=== PATIENT | male | born 1945 | race Two or more races ===

== ENCOUNTER → 2016-03-13 | Outpatient (CLI) | payer OTHER ==
--- NOTE | 2016-03-13 14:45 | RAD ---
Right upper quadrant abdominal ultrasound, 03/13/2016: History: Pain The gallbladder is within normal limits in size. There is no sonographic evidence of cholelithiasis. No bile duct dilatation is seen. The liver demonstrates increased echogenicity most commonly due to fatty change. No hepatic mass is evident. The pancreas was largely obscured by overlying bowel. There is a 4.4 cm cyst arising from the upper pole of the right kidney. There is no evidence of hydronephrosis. IMPRESSION: 1. No gallbladder abnormality is detected. 2. Increased hepatic echogenicity compatible with fatty infiltration. 3. Right renal cyst.
== END | disposition home or self-care (01) ==
LOC: US 13:12
PROVIDERS: ATTEND Internal Medicine
DX: R10.11 Right upper quadrant pain (principal); N28.1 Cyst of kidney, acquired; K76.0 Fatty (change of) liver, not elsewhere classified
CPT/HCPCS: 76705

== ENCOUNTER 2016-09-03 23:39 | Emergency (ER) | payer OTHER ==
[~2016-09-03] VITALS: Ht 154.9 cm; Wt 69.9 kg
[2016-09-03] MEDS ORDERED: IV NORMAL SALINE 1000ML BAG 1,000 ML IV SCH (23:55)
[2016-09-04 00:09] LABS: BASO % 1 % (0-3); EOS % 2 % (0-3); HEMATOCRIT 41.4 % (39.0-53.0); HEMOGLOBIN 14.5 g/dL (13.0-17.5); LYMPH # 1.5 x10^3/uL (1.0-4.8); LYMPH % 17 % (24-48); MEAN CORPUSCULAR HEMOGLOBIN 34 pg (25-35); MEAN CORPUSCULAR HGB CONC 35 g/dL (31-37); MEAN CORPUSCULAR VOLUME 96 fL (79-100); MONO % 6 % (0-9); NEUT % 75 % (31-73); PLATELET COUNT 174 x10^3/uL (140-400); RED BLOOD COUNT 4.32 x10^6/uL (4.30-5.70); RED CELL DISTRIBUTION WIDTH 12.6 % (11.5-14.5); WHITE BLOOD COUNT 8.7 x10^3/uL (4.0-11.0)
[2016-09-04 00:21] LABS: INR 1.1 (0.8-1.1); PROTHROMBIN TIME PATIENT 13.2 SEC (11.7-14.0)
[2016-09-04 00:22] LABS: CALCIUM 9.4 mg/dL (8.5-10.1); CREATININE 0.9 mg/dL (0.7-1.3); GFR 82.9; POTASSIUM 4.5 mmol/L (3.5-5.1)
[2016-09-04 00:28] LABS: ALBUMIN 3.8 g/dL (3.4-5.0); ALBUMIN/GLOBULIN RATIO 1.2 (1.0-1.7); MAGNESIUM 1.9 mg/dL (1.8-2.4); TOTAL BILIRUBIN 0.4 mg/dL (0.2-1.0); TOTAL PROTEIN 7.1 g/dL (6.4-8.2)
[2016-09-04 01:02] LABS: BILIRUBIN,URINE NEGATIVE (NEG); GLUCOSE,URINE >=1000 mg/dL (NEG); NITRITE,URINE NEGATIVE (NEG); PROTEIN,URINE NEGATIVE (NEG-TRACE); UROBILINOGEN,URINE 0.2 mg/dL (0.2 mg/dL)
[2016-09-04 01:07] LABS: BARBITURATES NEG (NEG); BENZODIAZEPINES NEG (NEG); CANNABINOIDS NEG (NEG); COCAINE NEG (NEG); METHADONE NEG (NEG); OPIATES NEG (NEG); PHENCYCLIDINE NEG (NEG)
[2016-09-04 01:31] LABS: BACTERIA,URINE 0 /HPF (0-FEW); RBC,URINE OCC /HPF (0-2); SQUAMOUS EPITHELIAL CELL,UR OCC /LPF; WBC,URINE OCC /HPF (0-4)
--- NOTE | 2016-09-04 02:01 | PHYS DOC ---
Past Medical History Past Medical History: Asthma, Diabetes-Type II, High Cholesterol, Hypothyroid Past Surgical History: Other Additional Past Surgical Histo: THYROID Alcohol Use: None Drug Use: None Adult General Chief Complaint Chief Complaint: ACCIDENTAL INGESTION HPI HPI Patient is a 71 year old male who presents with accidently ingested weed killer. Pt speaks Togolese and wishes for his family present in ER to interpret for him. Pt had commercial weed killer put in Power-aid bottle but forgot it was in there and color looked like regular poweraid to accidently took 2 swigs of the weed killer, family is guessing apporx 1/4 cup was swallowed.. This occured approx 45 min [employer]. Pt states felt like burning in back of throat/mouth and now feels ache in chest, head , neck and body aches, with nausea. Pt has not vomited. Pt states feels dizzy. Review of Systems Review of Systems Constitutional: Denies fever or chills [] Eyes: Denies change in visual acuity, redness, or eye pain [] HENT: Denies nasal congestion Respiratory: Denies cough or shortness of breath [] Cardiovascular: No additional information not addressed in HPI [] GI: Denies abdominal pain, vomiting, bloody stools or diarrhea [] : Denies dysuria or hematuria [] Integument: Denies rash or skin lesions [] Neurologic: Denies focal weakness or sensory changes [] Current Medications Current Medications Current Medications Medications (Trade) Dose Ordered Sig/Jose Start Time Stop Time Status Last Admin Dose Admin Sodium Chloride 1,000 ml @ 100 mls/hr 1X ONCE 09/04/16 02:15 09/04/16 06:07 DC 09/04/16 02:20 100 MLS/HR Allergies Allergies Allergies Coded Allergies Type Severity Reaction Last Updated Verified No Known Drug Allergies 09/04/16 No Physical Exam Physical Exam Constitutional: Well developed, well nourished, no acute distress, non-toxic appearance. [] HENT: Normocephalic, atraumatic, bilateral external ears normal, oropharynx moist, nose normal. Pt has areas of excoriation on palate mucosa and posterior pharynx. No hypersalivation, no trismus Eyes: PERRLA, EOMI, conjunctiva normal, no discharge. [] Neck: Normal range of motion, no tenderness, supple, no stridor. [] Cardiovascular:Heart rate regular rhythm, no murmur [] Lungs & Thorax: Bilateral breath sounds clear to auscultation [] Abdomen: Bowel sounds normal, soft, no tenderness, no masses, no pulsatile masses. [] Skin: Warm, dry, no erythema, no rash. [] Back: No tenderness, no CVA tenderness. [] Extremities: No tenderness, no cyanosis, no clubbing, ROM intact, no edema. [] Neurologic: Alert and oriented X 3, normal motor function, normal sensory function, no focal deficits noted. [] Psychologic: Affect normal, judgement normal, mood normal. [] Current Patient Data Vital Signs Vital Signs Date Time Temp Pulse Resp B/P (MAP) Pulse Ox O2 Delivery O2 Flow Rate FiO2 09/04/16 05:55 66 16 145/72 (96) 96 Room Air 09/03/16 23:45 98.1 98.1 Lab Values Laboratory Tests Test 09/03/16 23:50 09/04/16 00:52 09/04/16 03:46 White Blood Count 8.7 x10^3/uL (4.0-11.0) Red Blood Count 4.32 x10^6/uL (4.30-5.70) Hemoglobin 14.5 g/dL (13.0-17.5) Hematocrit 41.4 % (39.0-53.0) Mean Corpuscular Volume 96 fL (79-100) Mean Corpuscular Hemoglobin 34 pg (25-35) Mean Corpuscular Hemoglobin Concent 35 g/dL (31-37) Red Cell Distribution Width 12.6 % (11.5-14.5) Platelet Count 174 x10^3/uL (140-400) Neutrophils (%) (Auto) 75 % (31-73) H Lymphocytes (%) (Auto) 17 % (24-48) L Monocytes (%) (Auto) 6 % (0-9) Eosinophils (%) (Auto) 2 % (0-3) Basophils (%) (Auto) 1 % (0-3) Neutrophils # (Auto) 6.5 x10^3uL (1.8-7.7) Lymphocytes # (Auto) 1.5 x10^3/uL (1.0-4.8) Monocytes # (Auto) 0.5 x10^3/uL (0.0-1.1) Eosinophils # (Auto) 0.1 x10^3/uL (0.0-0.7) Basophils # (Auto) 0.0 x10^3/uL (0.0-0.2) Prothrombin Time 13.2 SEC (11.7-14.0) Prothrombin Time INR 1.1 (0.8-1.1) PTT 32 SEC (24-38) Sodium Level 138 mmol/L (136-145) Potassium Level 4.5 mmol/L (3.5-5.1) Chloride Level 101 mmol/L (98-107) Carbon Dioxide Level 26 mmol/L (21-32) Anion Gap 11 (6-14) Blood Urea Nitrogen 11 mg/dL (8-26) Creatinine 0.9 mg/dL (0.7-1.3) Estimated GFR (Cockcroft-Gault) 82.9 BUN/Creatinine Ratio 12 (6-20) Glucose Level 295 mg/dL (70-99) H Lactic Acid Level 2.0 mmol/L (0.4-2.0) Calcium Level 9.4 mg/dL (8.5-10.1) Magnesium Level 1.9 mg/dL (1.8-2.4) Total Bilirubin 0.4 mg/dL (0.2-1.0) Aspartate Amino Transferase (AST) 33 U/L (15-37) Alanine Aminotransferase (ALT) 41 U/L (16-63) Alkaline Phosphatase 118 U/L (46-116) H Troponin I Quantitative < 0.017 ng/mL (0.000-0.055) Total Protein 7.1 g/dL (6.4-8.2) Albumin 3.8 g/dL (3.4-5.0) Albumin/Globulin Ratio 1.2 (1.0-1.7) Lipase 191 U/L (73-393) Ethyl Alcohol Level < 10 mg/dL (0-10) Urine Collection Type Unknown Urine Color Yellow Urine Clarity Clear Urine pH 6.0 Urine Specific [place] 1.020 Urine Protein Negative mg/dL (NEG-TRACE) Urine Glucose (UA) >=1000 mg/dL (NEG) Urine Ketones (Stick) Negative mg/dL (NEG) Urine Blood Negative (NEG) Urine Nitrite Negative (NEG) Urine Bilirubin Negative (NEG) Urine Urobilinogen Dipstick 0.2 mg/dL (0.2 mg/dL) Urine Leukocyte Esterase Negative (NEG) Urine RBC Occ /HPF (0-2) Urine WBC Occ /HPF (0-4) Urine Squamous Epithelial Cells Occ /LPF Urine Bacteria 0 /HPF (0-FEW) Urine Mucus Slight /LPF Urine Opiates Screen Neg (NEG) Urine Methadone Screen Neg (NEG) Urine Barbiturates Neg (NEG) Urine Phencyclidine Screen Neg (NEG) Urine Amphetamine/Methamphetamine Neg (NEG) Urine Benzodiazepines Screen Neg (NEG) Urine Cocaine Screen Neg (NEG) Urine Cannabinoids Screen Neg (NEG) Urine Ethyl Alcohol Neg (NEG) POC Troponin I 0.00 ng/ml (<0.08) Laboratory Tests 09/03/16 23:50 Laboratory Tests 09/03/16 23:50 Lab normal except for elevated glucose initial troponin normal and repeat during observation for 6 hours in ER -- repeat trop was normal EKG EKG EKG---sinus rhythm no STEMI[] Interpretation Time: 3 Radiology/Procedures Radiology/Procedures PATIENT: ERIC PIPER ACCOUNT: [id number] : 1945 LOCATION: ER AGE: 71 SEX: M EXAM STATUS: DEP ER ORD. PHYSICIAN: LUIS ANTONIO OCONNOR MD REASON: chest pain PROCEDURE: PORTABLE CHEST 1V Indication chest pain. A single view of the chest was obtained and is compared to an examination March 13, 2016. The heart and pulmonary vessels appear normal. The lungs are clear. There is no pleural fluid or pneumothorax. A significant change compared to the previous exam is not seen. IMPRESSION: No acute finding. No significant change DICTATED and SIGNED BY: URIEL VARMA MD DATE: 09/04/16 0749 CC: LUIS ANTONIO OCONNOR MD; AIDA LOZANO MD ~ [] Course & Med Decision Making Course & Med Decision Making Pertinent Labs and Imaging studies reviewed. (See chart for details) Discussed case with poison control. 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 Pt observed in ER for 6 hours and no signs of organophosphate toxicity. Per poison control recommended supportive care and observe in ER for 6 hours. Pt during observation improved symptoms no dizzy, no LIRIANO no chest or abdominal pain VSS Per poison control liquid can have detergent like irritation to mucous membranes and that goes along with physician exam Pt able to swallow water in ER without difficulty and no vomiting Will discharge home after 6 hours. Advised liquid diet and advance to soft in next 1-2 days. Avoid spicy or crunchy foods Follow up with PCP for recheck in 1-2 days Dragon Disclaimer Dragon Disclaimer This electronic medical record was generated, in whole or in part, using a voice recognition dictation system. Departure Departure Impression: Primary Impression: [place] from ingested chemical agent Additional Impression: Accidental ingestion of potentially harmful entity Disposition: 01 HOME, SELF-CARE Condition: IMPROVED Referrals: AIDA LOZANO MD (PCP) Problem Qualifiers LUIS ANTONIO OCONNOR MD Sep 04, 2016 02:01
[2016-09-04] MEDS ORDERED: IV NORMAL SALINE 1000ML BAG 1,000 ML IV ONE (02:15)
[2016-09-04 05:55] VITALS: BP 145/72
--- NOTE | 2016-09-04 07:01 | EKG ---
[facility] [address] [place] [address] Test Date: 2016-09-03 Test Time: 23:53:27 Pat Name: ERIC PIPER Department: Room: Gender: M Chief Architect: : 1945 Requested By: LUIS ANTONIO OCONNOR Order Number: [id number] Reading MD: Measurements Intervals [place] Rate: 70 P: [place]: QRS: -4 QRSD: 128 T: 52 QT: 400 QTc: 435 Interpretive Statements IRREGULAR RHYTHM, NO P-WAVE FOUND LEFTWARD AXIS NON SPECIFIC INTRAVENTRICULAR BLOCK RI6.01 Unconfirmed report No previous ECG available for comparison
--- NOTE | 2016-09-04 07:59 | RAD ---
Indication chest pain. A single view of the chest was obtained and is compared to an examination March 13, 2016. The heart and pulmonary vessels appear normal. The lungs are clear. There is no pleural fluid or pneumothorax. A significant change compared to the previous exam is not seen. IMPRESSION: No acute finding. No significant change
== END 2016-09-04 06:00 | disposition home or self-care (01) ==
LOC: ER 23:39
DX: T60.3X1A Toxic effect of herbicides and fungicides, accidental (unintentional), initial encounter (principal); T28.0XXA Burn of mouth and pharynx, initial encounter; J45.909 Unspecified asthma, uncomplicated; E11.9 Type 2 diabetes mellitus without complications; E78.00 Pure hypercholesterolemia, unspecified; E03.9 Hypothyroidism, unspecified; X08.8XXA Exposure to other specified smoke, fire and flames, initial encounter; Y93.89 Activity, other specified; Y92.89 Other specified places as the place of occurrence of the external cause; Y99.8 Other external cause status
CPT/HCPCS: 36415; 71010; 80053; 80305; 81001; 83605; 83690; 83735; 84484; 85027; 85610; 85730; 93005; 96360; 96361; 99285; G0480; J7030; G0481

== ENCOUNTER 2018-10-14 21:01 | Emergency (ER) | payer MEDICARE, OTHER ==
[~2018-10-14] VITALS: Ht 154.9 cm; Wt 64.9 kg
[2018-10-14 22:41] LABS: BASO % 0 % (0-3); EOS # 0.1 x10^3/uL (0.0-0.7); EOS % 1 % (0-3); HEMATOCRIT 42.1 % (39.0-53.0); HEMOGLOBIN 14.6 g/dL (13.0-17.5); LYMPH # 1.6 x10^3/uL (1.0-4.8); LYMPH % 15 % (24-48); MEAN CORPUSCULAR HEMOGLOBIN 33 pg (25-35); MEAN CORPUSCULAR HGB CONC 35 g/dL (31-37); MEAN CORPUSCULAR VOLUME 96 fL (79-100); MONO # 0.6 x10^3/uL (0.0-1.1); MONO % 5 % (0-9); NEUT # 8.8 x10^3/uL (1.8-7.7); NEUT % 79 % (31-73); PLATELET COUNT 208 x10^3/uL (140-400); RED BLOOD COUNT 4.37 x10^6/uL (4.30-5.70); RED CELL DISTRIBUTION WIDTH 13.6 % (11.5-14.5); WHITE BLOOD COUNT 11.1 x10^3/uL (4.0-11.0)
[2018-10-14 22:43] LABS: BILIRUBIN,URINE NEGATIVE (NEG); CLARITY,URINE CLEAR; COLOR,URINE YELLOW; NITRITE,URINE NEGATIVE (NEG); PROTEIN,URINE NEGATIVE (NEG-TRACE); UROBILINOGEN,URINE 0.2 mg/dL (0.2 mg/dL)
[2018-10-14 22:50] LABS: CALCIUM 9.3 mg/dL (8.5-10.1); CREATININE 1.1 mg/dL (0.7-1.3); GFR 65.4; POTASSIUM 4.5 mmol/L (3.5-5.1)
[2018-10-14 22:50] LABS: BACTERIA,URINE 0 /HPF (0-FEW); RBC,URINE 0 /HPF (0-2); SQUAMOUS EPITHELIAL CELL,UR OCC /LPF; WBC,URINE 0 /HPF (0-4)
[2018-10-14 22:55] LABS: ALBUMIN 3.9 g/dL (3.4-5.0); ALBUMIN/GLOBULIN RATIO 0.9 (1.0-1.7); TOTAL BILIRUBIN 0.3 mg/dL (0.2-1.0); TOTAL PROTEIN 8.1 g/dL (6.4-8.2)
--- NOTE | 2018-10-14 23:19 | RAD ---
CHEST PA LATERAL INDICATION: Cough, weakness. COMPARISON STUDY: 05/01/2017. FINDINGS: Lungs: Normal lung volume. No pulmonary mass or consolidation. The tracheobronchial tree and hilar structures are normal. Pleura: No pleural effusion or pneumothorax. Heart and Mediastinum: The cardiomediastinal silhouette is normal. The great vessels of the thorax are normal. Bones and Soft Tissues: The bones and soft tissues are within normal limits. IMPRESSION: No acute cardiopulmonary process. Electronically signed by: Ty Yeung MD (10/14/2018 11:16 PM) [facility]
--- NOTE | 2018-10-15 00:16 | PHYS DOC ---
Past Medical History Past Medical History: Asthma, Diabetes-Type II, High Cholesterol, Hypertension Past Surgical History: Cervical Fusion Additional Past Surgical Histo: THYROIDECTOMY Alcohol Use: None Drug Use: None Adult General Chief Complaint Chief Complaint: WEAKNESS/GENERALIZED HPI HPI Patient is a 73 year old male, accompanied by his daughter, who presents to the ER with complaints of a dry cough, generalized weakness, sore throat, restless legs, and shortness of breath that has gradually increased over the last 2 weeks. Mother states that the patient reports feeling like he has pneumonia. Patient has had pneumonia several times in the past. He complains of generalized body aches and a headache and he rates his pain a 9 out of 10 on the pain scale, there are no alleviating or exacerbating factors. The patient's daughter translated for the patient as he is Cambodian speaking only. Review of Systems Review of Systems Constitutional: Denies fever or chills [] Eyes: Denies redness, or eye pain [] HENT: Denies nasal congestion or ear pain; reports sore throat Respiratory: Reports dry cough, shortness of breath, and intermittent wheezing Cardiovascular: No additional information not addressed in HPI, denies chest pain or palpitations [] GI: Denies nausea, vomiting, or bloody stools; complains of left lower abdominal pain and diarrhea for the last 2 days [] : Denies dysuria or hematuria [] Musculoskeletal: Reports body aches Integument: Denies rash or skin lesions [] Neurologic: Denies focal weakness or sensory changes; reports headache[] Endocrine: Denies polyuria or polydipsia [] Complete systems were reviewed and found to be within normal limits, except as documented in this note. Current Medications Current Medications Current Medications Medications (Trade) Dose Ordered Sig/Jose Start Time Stop Time Status Last Admin Dose Admin Fentanyl Citrate (Fentanyl 2ml Vial) 50 mcg 1X ONCE 10/15/18 00:30 10/15/18 00:31 DC 10/15/18 00:32 50 MCG Info (CONTRAST GIVEN -- Rx MONITORING) 1 each PRN DAILY PRN 10/15/18 00:30 10/17/18 00:29 Iohexol (Omnipaque 300 Mg/ml) 75 ml 1X ONCE 10/15/18 01:00 10/15/18 01:01 DC 10/15/18 00:41 75 ML Ondansetron HCl (Zofran) 4 mg 1X ONCE 10/15/18 00:30 10/15/18 00:31 DC 10/15/18 00:32 4 MG Sodium Chloride 1,000 ml @ 1,000 mls/hr 1X ONCE 10/15/18 00:30 10/15/18 01:29 DC 10/15/18 00:32 1,000 MLS/HR Allergies Allergies Allergies Coded Allergies Type Severity Reaction Last Updated Verified No Known Drug Allergies 09/04/16 No Physical Exam Physical Exam Constitutional: Well developed, well nourished, no acute distress, non-toxic appearance. [] HENT: Normocephalic, atraumatic, bilateral external ears normal, posterior pharynx normal, oropharynx moist, no oral exudates, nose normal. [] Eyes: PERRLA, EOMI, conjunctiva normal, no discharge. [] Neck: Normal range of motion, no tenderness, supple, no stridor. [] Cardiovascular:Heart rate regular rhythm, no murmur [] Lungs & Thorax: Bilateral breath sounds with rhonchi throughout all moralez that is cleared by coughing, no retractions, no increased work of breathing, fever expiratory wheezes Abdomen: Bowel sounds normal, soft, LLQ tenderness to palpation, no rebound tenderness, no guarding, no masses, no pulsatile masses. [] Skin: Warm, dry, no erythema, no rash. [] Back: No tenderness, no CVA tenderness. [] Extremities: No cyanosis, no clubbing, ROM intact, no edema. [] Neurologic: Alert and oriented X 3, no focal deficits noted. [] Psychologic: Affect normal, judgement normal, mood normal. [] Current Patient Data Vital Signs Vital Signs Date Time Temp Pulse Resp B/P (MAP) Pulse Ox O2 Delivery O2 Flow Rate FiO2 10/14/18 21:41 97.5 79 18 130/88 (102) 96 Room Air 97.5 Lab Values Laboratory Tests Test 10/14/18 22:15 10/14/18 22:20 Urine Collection Type Void Urine Color Yellow Urine Clarity Clear Urine pH 6.0 Urine Specific [place] 1.025 Urine Protein Negative mg/dL (NEG-TRACE) Urine Glucose (UA) Negative mg/dL (NEG) Urine Ketones (Stick) Negative mg/dL (NEG) Urine Blood Negative (NEG) Urine Nitrite Negative (NEG) Urine Bilirubin Negative (NEG) Urine Urobilinogen Dipstick 0.2 mg/dL (0.2 mg/dL) Urine Leukocyte Esterase Negative (NEG) Urine RBC 0 /HPF (0-2) Urine WBC 0 /HPF (0-4) Urine Squamous Epithelial Cells Occ /LPF Urine Bacteria 0 /HPF (0-FEW) Urine Mucus Marked /LPF White Blood Count 11.1 x10^3/uL (4.0-11.0) H Red Blood Count 4.37 x10^6/uL (4.30-5.70) Hemoglobin 14.6 g/dL (13.0-17.5) Hematocrit 42.1 % (39.0-53.0) Mean Corpuscular Volume 96 fL (79-100) Mean Corpuscular Hemoglobin 33 pg (25-35) Mean Corpuscular Hemoglobin Concent 35 g/dL (31-37) Red Cell Distribution Width 13.6 % (11.5-14.5) Platelet Count 208 x10^3/uL (140-400) Neutrophils (%) (Auto) 79 % (31-73) H Lymphocytes (%) (Auto) 15 % (24-48) L Monocytes (%) (Auto) 5 % (0-9) Eosinophils (%) (Auto) 1 % (0-3) Basophils (%) (Auto) 0 % (0-3) Neutrophils # (Auto) 8.8 x10^3/uL (1.8-7.7) H Lymphocytes # (Auto) 1.6 x10^3/uL (1.0-4.8) Monocytes # (Auto) 0.6 x10^3/uL (0.0-1.1) Eosinophils # (Auto) 0.1 x10^3/uL (0.0-0.7) Basophils # (Auto) 0.0 x10^3/uL (0.0-0.2) Prothrombin Time 13.2 SEC (11.7-14.0) Prothrombin Time INR 1.0 (0.8-1.1) Activated Partial Thromboplast Time 29 SEC (24-38) Sodium Level 141 mmol/L (136-145) Potassium Level 4.5 mmol/L (3.5-5.1) Chloride Level 106 mmol/L (98-107) Carbon Dioxide Level 25 mmol/L (21-32) Anion Gap 10 (6-14) Blood Urea Nitrogen 22 mg/dL (8-26) Creatinine 1.1 mg/dL (0.7-1.3) Estimated GFR (Cockcroft-Gault) 65.4 BUN/Creatinine Ratio 20 (6-20) Glucose Level 156 mg/dL (70-99) H Lactic Acid Level 1.4 mmol/L (0.4-2.0) Calcium Level 9.3 mg/dL (8.5-10.1) Magnesium Level 2.0 mg/dL (1.8-2.4) Total Bilirubin 0.3 mg/dL (0.2-1.0) Aspartate Amino Transferase (AST) 14 U/L (15-37) L Alanine Aminotransferase (ALT) 33 U/L (16-63) Alkaline Phosphatase 101 U/L (46-116) Creatine Kinase 193 U/L (39-308) Creatine Kinase MB (Mass) 1.8 ng/mL (0.0-3.6) Creatine Kinase MB Relative Index 0.9 % (0-4) Troponin I Quantitative < 0.017 ng/mL (0.000-0.055) DT-Hfz-H-Type Natriuretic Peptide 22 pg/mL (0-124) Total Protein 8.1 g/dL (6.4-8.2) Albumin 3.9 g/dL (3.4-5.0) Albumin/Globulin Ratio 0.9 (1.0-1.7) L Laboratory Tests 10/14/18 22:20 Laboratory Tests 10/14/18 22:20 EKG EKG 2238- SR leftward axis, rate 75, T wave abnormality in high lateral leads, no STEMI read by Dr. Birch. [] Radiology/Procedures Radiology/Procedures PROCEDURE: CHEST PA & LATERAL CHEST PA LATERAL INDICATION: Cough, weakness. COMPARISON STUDY: 05/01/2017. FINDINGS: Lungs: Normal lung volume. No pulmonary mass or consolidation. The tracheobronchial tree and hilar structures are normal. Pleura: No pleural effusion or pneumothorax. Heart and Mediastinum: The cardiomediastinal silhouette is normal. The great vessels of the thorax are normal. Bones and Soft Tissues: The bones and soft tissues are within normal limits. IMPRESSION: No acute cardiopulmonary process.[] PROCEDURE: CT ABD PELV W/ IV CONTRST ONLY CT abdomen and pelvis with contrast: Reason for examination: Left lower abdominal pain and diarrhea. Helical images were obtained through the abdomen and pelvis with intravenous administration of 75 cc Omnipaque 300. Reconstruction was performed in sagittal and coronal planes. Exposure: One or more of the following individualized dose reduction techniques were utilized for this examination: 1. Automated exposure control 2. Adjustment of the mA and/or kV according to patient size 3. Use of iterative reconstruction technique. There is some atelectasis at the right lung base. The heart size is normal with no pericardial effusion evident. No abnormality seen at the liver, spleen, pancreas or adrenal glands. The gallbladder is contracted but no choleliths are identified. The abdominal aorta and inferior vena cava show no acute abnormalities. No abnormality seen at the appendix. There is no evidence of diverticulosis or diverticulitis. The small intestinal tract shows no abnormal dilatation or wall thickening and no obstruction is seen. No abnormality seen at the stomach but there is a large amount of gastric content present but no evidence of gastric outlet obstruction. The kidneys show hypodense lesions consistent with cysts bilaterally with the largest lesion at the upper pole the right kidney measuring 3 cm in size. No renal calculi, hydronephrosis or obstructive uropathy is seen. No abnormality seen at the bladder, prostate gland or seminal vesicles. There is no free fluid or free air seen in the abdomen or pelvis. No acute bony abnormalities are evident. IMPRESSION: Linear atelectasis at the right lung base. Contracted gallbladder with no evidence of cholelithiasis. Multiple hypodense renal lesions consistent with cysts with the largest measuring 3 cm in size at the upper pole of the right kidney. No acute intestinal abnormality evident. Course & Med Decision Making Course & Med Decision Making Pertinent Labs and Imaging studies reviewed. (See chart for details) dx: bronchitis ddx: Pneumonia, pulmonary embolism, ACS, CHF, colitis, diverticulitis, infectious diarrhea CBC had a mildly elevated white blood count of 11.1 and a mild shift, UTI and are is unremarkable, CMP revealed a glucose of 156 is otherwise unremarkable, CK-MB index is negative, troponin is negative, BNP is 22, UA is negative for any concerns of infection. cxr normal, no acute findings. CT abdomen and pelvis with IV contrast reveals linear atelectasis at the right lung base otherwise no acute findings Patient was given a liter of normal saline in the emergency department, 4 mg of Zofran, and 50 �g of fentanyl. He reported feeling better after these tests and interventions. We'll prescribe Levaquin 750 mg one by mouth daily for 7 days, a Pro Air inhaler, and Tessalon Perles. Patient encouraged follow-up with his doctor for further evaluation of restless leg complaints. Return to the emergency room if symptoms worsen. Patient's daughter and the Patient verbalized an understanding of home care, medications, follow-up, and return to ED instructions and were in agreement with the plan of care. [] Dragon Disclaimer Dragon Disclaimer This electronic medical record was generated, in whole or in part, using a voice recognition dictation system. Departure Departure Impression: Primary Impression: Bronchitis Additional Impression: Cough in adult patient Disposition: HOME, SELF-CARE Condition: STABLE Referrals: KEISHA BRIGGS D.O. (PCP) Patient Instructions: Acute Bronchitis, [id number] Additional Instructions: Fill the prescriptions and use them as directed. Increase clear fluids. You may take Tylenol or ibuprofen as needed for pain and fever. Follow-up with your primary care doctor for reevaluation and further evaluation of your restless leg problems next week. Return to the ER if your symptoms worsen. Scripts Benzonatate (TESSALON PERLE) 100 Mg Capsule 100 MG PO TID PRN for COUGH for 7 Days, #21 CAP 0 Refills Prov: FRANCISCO WISE APRN 10/15/18 Albuterol Sulfate (PROAIR HFA INHALER) 8.5 Gm Hfa.aer.ad 2 PUFF INH Q4-6HRS PRN for SHORTNESS OF BREATH for 10 Days, #1 INHALER 0 Refills Prov: FRANCISCO WISE APRN 10/15/18 Levofloxacin (LEVAQUIN) 750 Mg Tablet 1 TAB PO DAILY, #7 TAB 0 Refills Prov: FRANCISCO WISE APRN 10/15/18 Problem Qualifiers FRANCISCO WISE APRN Oct 15, 2018 00:16
[2018-10-15 00:17] LABS: PROTHROMBIN TIME PATIENT 13.2 SEC (11.7-14.0)
[2018-10-15] MEDS ORDERED: CONTRAST GIVEN. MC PRN (00:30)
[2018-10-15] MEDS ORDERED: IV NORMAL SALINE 1000ML BAG 1,000 ML IV ONE (00:30)
[2018-10-15] MEDS ORDERED: ONDANSETRON PF 4 MG/2 ML VIAL. IV ONE (00:30)
[2018-10-15] MEDS ORDERED: fentaNYL PF VIAL 100 MCG/2 ML VIAL IV ONE (00:30)
[2018-10-15] MEDS ORDERED: IOHEXOL 300 MG/ML 100ML VIAL. IV ONE (01:00)
--- NOTE | 2018-10-15 01:35 | RAD ---
CT abdomen and pelvis with contrast: Reason for examination: Left lower abdominal pain and diarrhea. Helical images were obtained through the abdomen and pelvis with intravenous administration of 75 cc Omnipaque 300. Reconstruction was performed in sagittal and coronal planes. Exposure: One or more of the following individualized dose reduction techniques were utilized for this examination: 1. Automated exposure control 2. Adjustment of the mA and/or kV according to patient size 3. Use of iterative reconstruction technique. There is some atelectasis at the right lung base. The heart size is normal with no pericardial effusion evident. No abnormality seen at the liver, spleen, pancreas or adrenal glands. The gallbladder is contracted but no choleliths are identified. The abdominal aorta and inferior vena cava show no acute abnormalities. No abnormality seen at the appendix. There is no evidence of diverticulosis or diverticulitis. The small intestinal tract shows no abnormal dilatation or wall thickening and no obstruction is seen. No abnormality seen at the stomach but there is a large amount of gastric content present but no evidence of gastric outlet obstruction. The kidneys show hypodense lesions consistent with cysts bilaterally with the largest lesion at the upper pole the right kidney measuring 3 cm in size. No renal calculi, hydronephrosis or obstructive uropathy is seen. No abnormality seen at the bladder, prostate gland or seminal vesicles. There is no free fluid or free air seen in the abdomen or pelvis. No acute bony abnormalities are evident. IMPRESSION: Linear atelectasis at the right lung base. Contracted gallbladder with no evidence of cholelithiasis. Multiple hypodense renal lesions consistent with cysts with the largest measuring 3 cm in size at the upper pole of the right kidney. No acute intestinal abnormality evident. Electronically signed by: Marion Alvarado MD (10/15/2018 1:32 AM) [facility] [place]
[2018-10-15] MEDS ORDERED: ALBU2.5V8 INH (01:57)
[2018-10-15] MEDS ORDERED: BENZ100C PO (01:57)
[2018-10-15] MEDS ORDERED: LEVO750T31 PO (01:57)
[2018-10-15 02:00] VITALS: BP 130/69
--- NOTE | 2018-10-15 05:11 | EKG ---
[facility] [address] [place] [address] Test Date: 2018-10-14 Test Time: 22:38:49 Pat Name: ERIC PIPER Department: Room: Gender: M Level Vial Marker: : 1945 Requested By: FRANCISCO WISE Order Number: [id number] Reading MD: Measurements Intervals [place] Rate: 75 P: 36 [place]: 152 QRS: -18 QRSD: 118 T: 73 QT: 380 QTc: 427 Interpretive Statements SINUS RHYTHM LEFTWARD AXIS T ABNORMALITY IN HIGH LATERAL LEADS ABNORMAL ECG RI6.01 No previous ECG available for comparison
== END 2018-10-15 02:09 | disposition home or self-care (01) ==
LOC: ER 21:01
DX: J45.909 Unspecified asthma, uncomplicated (principal); G25.81 Restless legs syndrome; R10.32 Left lower quadrant pain; R19.7 Diarrhea, unspecified; E11.9 Type 2 diabetes mellitus without complications; E78.00 Pure hypercholesterolemia, unspecified; I10 Essential (primary) hypertension; E89.0 Postprocedural hypothyroidism
CPT/HCPCS: 36415; 71046; 74177; 80053; 81001; 82553; 83605; 83735; 83880; 84484; 85025; 85610; 85730; 93005; 96361; 96374; 96375; 99285; J2405; J3010; J7030; Q9967

== ENCOUNTER 2019-01-22 11:56 | Emergency (ER) | payer MEDICARE ==
[~2019-01-22] VITALS: Ht 162.6 cm; Wt 72.6 kg
[~2019-01-22 11:56] MED LIST: ALBU2.5V8 INH; BENZ100C PO; LEVO750T31 PO
[2019-01-22] MEDS: fentaNYL PF VIAL 100 MCG/2 ML VIAL IVP ONE (12:31)
[2019-01-22] MEDS: IV NORMAL SALINE 1000ML BAG 1,000 ML IV SCH (12:31)
[2019-01-22 12:33] LABS: BASO % 1 % (0-3); EOS # 0.1 x10^3/uL (0.0-0.7); EOS % 1 % (0-3); HEMATOCRIT 42.1 % (39.0-53.0); HEMOGLOBIN 14.5 g/dL (13.0-17.5); LYMPH # 0.8 x10^3/uL (1.0-4.8); LYMPH % 9 % (24-48); MEAN CORPUSCULAR HEMOGLOBIN 33 pg (25-35); MEAN CORPUSCULAR HGB CONC 34 g/dL (31-37); MEAN CORPUSCULAR VOLUME 96 fL (79-100); MONO # 0.6 x10^3/uL (0.0-1.1); MONO % 6 % (0-9); NEUT # 7.3 x10^3/uL (1.8-7.7); NEUT % 83 % (31-73); PLATELET COUNT 176 x10^3/uL (140-400); RED BLOOD COUNT 4.37 x10^6/uL (4.30-5.70); RED CELL DISTRIBUTION WIDTH 12.8 % (11.5-14.5); WHITE BLOOD COUNT 8.8 x10^3/uL (4.0-11.0)
[2019-01-22 12:42] LABS: CALCIUM 9.4 mg/dL (8.5-10.1); CREATININE 0.9 mg/dL (0.7-1.3); GFR 82.5; POTASSIUM 3.6 mmol/L (3.5-5.1)
--- NOTE | 2019-01-22 13:10 | PHYS DOC ---
Past Medical History Past Medical History: Asthma, Diabetes-Type II, High Cholesterol, Hypertension Past Surgical History: Cervical Fusion Additional Past Surgical Histo: THYROIDECTOMY Alcohol Use: None Drug Use: None Adult General Chief Complaint Chief Complaint: SWALLOWED FORIEGN BODY HPI HPI Patient is a 73 year old patient with history of hypertension, dyslipidemia, diabetes mellitus and asthma who presents with complaining of food stuck in his throat. Patient states he was eating [place] steak last night and suddenly felt the food stuck in his upper chest and since then was not able to swallow his saliva or eating or drinking anything. Patient states he has to wake up several times during the night for spitting up his saliva. Patient denies abdominal pain and states he had history of the same problem that resolved spontaneously previously. Review of Systems Review of Systems Constitutional: Denies fever or chills [] Eyes: Denies change in visual acuity, redness, or eye pain [] HENT: Denies nasal congestion or sore throat [] Respiratory: Denies cough or shortness of breath [] Cardiovascular: No additional information not addressed in HPI [] GI: Denies abdominal pain, vomiting, bloody stools or diarrhea, reports nausea [] : Denies dysuria or hematuria [] Musculoskeletal: Denies back pain or joint pain [] Integument: Denies rash or skin lesions [] Neurologic: Denies headache, focal weakness or sensory changes [] Endocrine: Denies polyuria or polydipsia [] All other systems were reviewed and found to be within normal limits, except as documented in this note. Current Medications Current Medications Current Medications Medications (Trade) Dose Ordered Sig/Jose Start Time Stop Time Status Last Admin Dose Admin Fentanyl Citrate (Fentanyl 2ml Vial) 50 mcg 1X ONCE 01/22/19 12:30 01/22/19 12:31 DC 01/22/19 12:31 50 MCG Propofol 20 ml @ As Directed STK-MED ONCE 01/22/19 13:11 01/22/19 13:12 DC Sodium Chloride 1,000 ml @ 1,000 mls/hr Q1H 01/22/19 12:17 01/22/19 13:16 DC 01/22/19 12:31 1,000 MLS/HR Allergies Allergies Allergies Coded Allergies Type Severity Reaction Last Updated Verified No Known Drug Allergies 01/22/19 No Physical Exam Physical Exam Constitutional: Well developed, well nourished, mild distress, non-toxic appearance. [] HENT: Normocephalic, atraumatic. Eyes: PERRLA, EOMI, conjunctiva normal, no discharge. [] Neck: Normal range of motion, no tenderness, supple, no stridor. [] Cardiovascular:Heart rate regular rhythm, no murmur [] Lungs & Thorax: Bilateral breath sounds clear to auscultation [] Abdomen: Bowel sounds normal, soft, no tenderness, no masses, no pulsatile masses. [] Skin: Warm, dry, no erythema, no rash. [] Back: No tenderness, no CVA tenderness. [] Extremities: No tenderness, no cyanosis, no clubbing, ROM intact, no edema. [] Neurologic: Alert and oriented X 3, no focal deficits noted. [] Psychologic: Affect normal, judgement normal, mood normal. [] Current Patient Data Vital Signs Vital Signs Date Time Temp Pulse Resp B/P (MAP) Pulse Ox O2 Delivery O2 Flow Rate FiO2 01/22/19 14:19 68 20 160/89 95 Room Air 01/22/19 13:49 97.6 97.6 Lab Values Laboratory Tests Test 01/22/19 12:25 White Blood Count 8.8 x10^3/uL (4.0-11.0) Red Blood Count 4.37 x10^6/uL (4.30-5.70) Hemoglobin 14.5 g/dL (13.0-17.5) Hematocrit 42.1 % (39.0-53.0) Mean Corpuscular Volume 96 fL (79-100) Mean Corpuscular Hemoglobin 33 pg (25-35) Mean Corpuscular Hemoglobin Concent 34 g/dL (31-37) Red Cell Distribution Width 12.8 % (11.5-14.5) Platelet Count 176 x10^3/uL (140-400) Neutrophils (%) (Auto) 83 % (31-73) H Lymphocytes (%) (Auto) 9 % (24-48) L Monocytes (%) (Auto) 6 % (0-9) Eosinophils (%) (Auto) 1 % (0-3) Basophils (%) (Auto) 1 % (0-3) Neutrophils # (Auto) 7.3 x10^3/uL (1.8-7.7) Lymphocytes # (Auto) 0.8 x10^3/uL (1.0-4.8) L Monocytes # (Auto) 0.6 x10^3/uL (0.0-1.1) Eosinophils # (Auto) 0.1 x10^3/uL (0.0-0.7) Basophils # (Auto) 0.0 x10^3/uL (0.0-0.2) Sodium Level 140 mmol/L (136-145) Potassium Level 3.6 mmol/L (3.5-5.1) Chloride Level 104 mmol/L (98-107) Carbon Dioxide Level 26 mmol/L (21-32) Anion Gap 10 (6-14) Blood Urea Nitrogen 9 mg/dL (8-26) Creatinine 0.9 mg/dL (0.7-1.3) Estimated GFR (Cockcroft-Gault) 82.5 Glucose Level 149 mg/dL (70-99) H Calcium Level 9.4 mg/dL (8.5-10.1) Laboratory Tests 01/22/19 12:25 Laboratory Tests 01/22/19 12:25 EKG EKG [] Radiology/Procedures Radiology/Procedures [] Course & Med Decision Making Course & Med Decision Making Pertinent Labs reviewed. (See chart for details) Evaluation of patient in ER showed 73-year-old male patient with esophageal foreign body meat since last night. On-call GI Dr Orantes was consulted at 12:30 and plans to take patient to endoscopy lab for removal of esophageal foreign body. Patient and his family informed about plan of care. Patient was discharged from ER care and was advised to follow-up with GI specialist instruction after removal of the foreign body. Patient was transferred to GI lab in stable condition. Dragon Disclaimer Dragon Disclaimer This electronic medical record was generated, in whole or in part, using a voice recognition dictation system. Departure Departure Impression: Primary Impression: Esophageal foreign body Disposition: 01 HOME, SELF-CARE (discharge to GI lab for endoscopic removal of the foreign body) Referrals: KEISHA BRIGGS D.O. (PCP) LATOYA ORANTES MD Patient Instructions: Swallowed Foreign Body, Adult Additional Instructions: Follow-up with GI specialist instruction EMELIA QUEZADA MD Jan 22, 2019 13:10
[2019-01-22] MEDS ORDERED: PROPOFOL 20 ML IV ONE (13:11)
[2019-01-22] MEDS ORDERED: TAMS0.4C97 PO (13:56)
[2019-01-22] MEDS ORDERED: OMEP40CA45 PO (13:56)
[2019-01-22] MEDS ORDERED: LEVO50TA5 PO (13:56)
[2019-01-22] MEDS ORDERED: GABA600T7 PO (13:56)
[2019-01-22] MEDS ORDERED: TIZA4TAB2 PO (13:56)
[2019-01-22] MEDS ORDERED: TRAM50TA PO (13:56)
[2019-01-22 14:19] VITALS: BP 160/89
--- NOTE | 2019-01-22 22:41 | CONS ---
DATE OF CONSULTATION: 01/22/2019 GASTROENTEROLOGY CONSULTATION REASON FOR CONSULTATION: Esophageal foreign body meat impaction. HISTORY OF PRESENT ILLNESS: This is a 73-year-old male with past medical history significant for gastroesophageal reflux disease, BPH, hypothyroidism as well as neuropathy, gastroesophageal reflux disease, who is seen with meat impaction. He has had one previously, which passed on his own. This one did not pass overnight. He came to the Emergency Room today with piece of steak stuck in the proximal esophagus and states he has minimal pain, but is unable to handle his oral secretions. With continued symptoms, consultation is requested for further management and care. PAST MEDICAL HISTORY: Esophageal stricture, BPH, hypothyroidism, asthma. ALLERGIES: None. MEDICATIONS: Include finasteride, levothyroxine, tamsulosin, tizanidine, omeprazole, tramadol, and gabapentin. SOCIAL HISTORY: Does not drink or smoke: He is retired. FAMILY HISTORY: Noncontributory. REVIEW OF SYSTEMS: Per records. PHYSICAL EXAMINATION: GENERAL: Reveals a well-nourished, well-developed male who is alert, cooperative, in no acute distress. VITAL SIGNS: Temperature 97.7, pulse 86, respirations 16, blood pressure is 161/80. HEENT: Reveals normocephalic, atraumatic head. Pupils and extraocular muscles are not tested. Sclerae anicteric. NECK: Supple. LUNGS: Clear. CARDIOVASCULAR: Reveals an S1, S2 without S3, S4 or appreciable murmur. ABDOMEN: Reveals soft abdomen, normal bowel sounds, without appreciable hepatosplenomegaly. EXTREMITIES: Reveals no cyanosis, clubbing or edema. IMPRESSION AND RECOMMENDATIONS: Esophageal meat impaction, most likely secondary to Schatzki's ring, malignancy, achalasia, Murray's, eosinophilic esophagitis in the differential; therefore, recommend upper endoscopy with possible foreign body removal. Dilatation will be unlikely to be performed due to the fact that the meat bolus has been stuck for more than 12 hours at this point. Risks and benefits of procedure including risk of hemorrhage and perforation have been discussed with the patient and he is willing to proceed. LATOYA WATSON MD DR: CHANA/quentin JOB#: [id number] / [id number] LAWRENCE Fitzgerald
== END 2019-01-22 13:23 | disposition home or self-care (01) ==
LOC: ER 11:56
DX: T18.128A Food in esophagus causing other injury, initial encounter (principal); E78.00 Pure hypercholesterolemia, unspecified; I10 Essential (primary) hypertension; E11.9 Type 2 diabetes mellitus without complications; J45.909 Unspecified asthma, uncomplicated; Z98.1 Arthrodesis status; X58.XXXA Exposure to other specified factors, initial encounter; Y93.89 Activity, other specified; Y92.89 Other specified places as the place of occurrence of the external cause; Y99.8 Other external cause status
CPT/HCPCS: 36415; 43247; 80048; 85025; 96374; 99284; J2704; J3010; J7030